=== PATIENT | female | born 1945 | race Two or more races ===

== ENCOUNTER 2016-03-13 17:15 | Emergency (ER) | payer MEDICARE, MEDICAID ==
[~2016-03-13] VITALS: Ht 175.3 cm; Wt 95.3 kg
[2016-03-13] MEDS ORDERED: HALOPERIDOL LACTATE INJ 5 MG/ML VIAL ONE (18:26)
[2016-03-13] MEDS ORDERED: HALOPERIDOL LACTATE INJ 5 MG/ML VIAL IV ONE (18:30)
[2016-03-13] MEDS ORDERED: LORAZEPAM INJ 2 MG/ML VIAL IM ONE (19:30)
[2016-03-13 20:03] VITALS: BP 130/70
== END 2016-03-13 20:04 ==
LOC: ER 17:22
DX: M79.89 Other specified soft tissue disorders (principal); R60.0 Localized edema; E11.9 Type 2 diabetes mellitus without complications; E78.00 Pure hypercholesterolemia, unspecified; I10 Essential (primary) hypertension; I48.91 Unspecified atrial fibrillation; J44.9 Chronic obstructive pulmonary disease, unspecified; R45.1 Restlessness and agitation; F17.210 Nicotine dependence, cigarettes, uncomplicated; I50.9 Heart failure, unspecified
CPT/HCPCS: A4606; J1630; Z7610

== ENCOUNTER 2017-02-26 11:31 | Inpatient (IN) | payer MEDICARE, MEDICAID ==
[~2017-02-26] VITALS: Ht 170.2 cm; Wt 93.9 kg
[2017-02-26] MEDS ORDERED: PIPERACILLIN /TAZOBACTAM 3.375 G in IV D5W 50 ML IV ONE (12:00)
[2017-02-26] MEDS ORDERED: VANCOMYCIN 1 GM in IV D5W 250 ML IV ONE (12:00)
[2017-02-26 12:26] LABS: BASOPHILS % (AUTO) 0.5 % (0.0-2.0); EOSINOPHILS # (AUTO) 0.1 /CMM (0.0-0.7); HEMATOCRIT 45 % (33-45); HEMOGLOBIN 15.4 g/dL (11.5-14.8); LYMPHOCYTES # (AUTO) 1.8 /CMM (0.8-4.8); LYMPHOCYTES % (AUTO) 20.3 % (20.0-44.0); MEAN CORPUSCULAR HEMOGLOBIN 32 PG (26.0-33.0); MEAN CORPUSCULAR HGB CONC 34 g/dl (31.0-36.0); MEAN CORPUSCULAR VOLUME 93 fL (82-100); MONOCYTES # (AUTO) 0.6 /CMM (0.1-1.30); MONOCYTES % (AUTO) 6.8 % (2.0-12.0); NEUTROPHILS # (AUTO) 6.5 /CMM (1.8-8.9); NEUTROPHILS % (AUTO) 71.4 % (43.0-81.0); PLATELET COUNT (AUTO) 200 /CMM (150-450); RDW COEFFICIENT OF VARIATION 13.1 (11.5-15.0); RED BLOOD CELL COUNT(AUTO) 4.86 MIL/uL (4.0-5.2); WHITE BLOOD COUNT (AUTO) 9.1 K/uL (4.3-11.0)
[2017-02-26 12:27] LABS: CALCIUM, SERUM 9.5 mg/dL (8.5-10.1); CARBON DIOXIDE 34 mmol/L (21-32); CHLORIDE 101 mmol/L (98-107); CREATININE 0.7 mg/dL (0.6-1.3); GLUCOSE 101 mg/dL (74-106); POTASSIUM 4.3 mmol/L (3.5-5.1); SODIUM SERUM 140 mmol/L (136-145); UREA NITROGEN, BLOOD 13 mg/dL (7-18)
[2017-02-26 12:33] LABS: ALANINE AMINOTRANSFERASE 43 U/L (12-78); ALBUMIN 3.8 g/dL (3.4-5.0); ALKALINE PHOSPHATASE 126 U/L (46-116); ASPARTATE AMINOTRANSFERASE 25 U/L (15-37); BILIRUBIN,DIRECT 0.2 mg/dL (0.0-0.2); BILIRUBIN,TOTAL 0.5 mg/dL (0.2-1.0); TOTAL PROTEIN, SERUM 8.1 g/dL (6.4-8.2)
[2017-02-26 12:34] LABS: TROPONIN I < 0.017 ng/mL (0.00-0.056)
[2017-02-26] MEDS ORDERED: FURO-145 PO (12:38)
[2017-02-26] MEDS ORDERED: ATOR10TA PO (12:38)
[2017-02-26] MEDS ORDERED: ALLA266C2 TP (12:38)
[2017-02-26] MEDS ORDERED: RIVA10TA PO (12:38)
[2017-02-26] MEDS ORDERED: MONT10TA22 PO (12:38)
[2017-02-26] MEDS ORDERED: FLUT1DIS5 IH (12:38)
[2017-02-26] MEDS ORDERED: RISP0.253 PO (12:38)
[2017-02-26] MEDS ORDERED: VARE1TAB PO (12:38)
[2017-02-26] MEDS ORDERED: CLON0.1T PO (12:38)
[2017-02-26] MEDS ORDERED: OXCA300T PO (12:38)
[2017-02-26] MEDS ORDERED: HYDR28.32 TP (12:38)
[2017-02-26] MEDS ORDERED: ALBU1.257 IH (12:38)
[2017-02-26 12:42] LABS: APPEARANCE,URINE Cloudy (CLEAR); BILIRUBIN,URINE SMALL (NEGATIVE); BLOOD, URINE Large Ery/uL (NEGATIVE); COLOR,URINE Yellow (YELLOW); KETONES,URINE Trace (NEGATIVE); LEUKOCYTE ESTERASE ,URINE Small (NEGATIVE); NITRITE, URINE Positive (NEGATIVE); PROTEIN,URINE >=300 mg/dl (NEGATIVE); UGLUCOSE Negative (NEGATIVE)
[2017-02-26 12:44] LABS: INR 1.03 (0.87-1.13); PROTHROMBIN TIME 10.7 SECS (9.5-12.7)
[2017-02-26 13:14] LABS: BACTERIA,URINE Many /HPF (None Seen); SQUAMOUS EPITHELIAL CELL,UR Few /HPF (None Seen); WBC,URINE 21-50 /HPF (0-3)
[2017-02-26 15:00] VITALS: BP 151/91
[2017-02-26] MEDS: CEFAZOLIN 1 GM in IV NS 0.9% 50 ML IV SCH (18:35)
[2017-02-26 20:00] VITALS: BP 141/113
[2017-02-26] MEDS ORDERED: CHANTIX XX SCH (20:30)
[2017-02-26] MEDS ORDERED: LIDOCAINE HCL/PF 1% 30 ML SDV IJ ONE (20:30)
[2017-02-26] MEDS ORDERED: CLONIDINE HCL 0.1 MG TABLET PO PRN (20:30)
[2017-02-26] MEDS ORDERED: ALBUTEROL HALF STRENGTH 1.25 MG/3 ML VIAL.NEB IH PRN (20:30)
[2017-02-26] MEDS ORDERED: risperiDONE 0.25 MG TABLET PO SCH (21:00)
[2017-02-26] MEDS ORDERED: risperiDONE 0.25 MG TABLET PO ONE (21:23)
[2017-02-26] MEDS: MONTELUKAST SODIUM (10MG) 10 MG TABLET PO SCH (21:29)
[2017-02-26] MEDS: ATORVASTATIN 10 MG TABLET PO SCH (21:29)
[2017-02-26] MEDS: RIVAROXABAN 10 MG TABLET PO SCH (21:35)
[2017-02-27] MEDS: CEFAZOLIN 1 GM in IV NS 0.9% 50 ML IV SCH ×3 (01:41→17:44)
[2017-02-27 08:00] VITALS: BP 139/90
[2017-02-27] MEDS: NYSTATIN TOP POWDER 15 GM BOTTLE TP SCH ×2 (09:00→16:48)
[2017-02-27] MEDS ORDERED: MONTELUKAST SODIUM (10MG) 10 MG TABLET PO SCH (09:00)
[2017-02-27] MEDS ORDERED: HYDROCORTISONE 1% CREAM 28.35 GM TUBE TP SCH (09:00)
[2017-02-27] MEDS: FUROSEMIDE 20 MG TABLET PO SCH (09:01)
[2017-02-27] MEDS: OXCARBAZEPINE 150 MG TABLET PO SCH ×2 (09:01→16:48)
[2017-02-27] MEDS: FLUTICASONE/VILANTEROL 1 EACH BLST.W.DEV IH SCH (09:10)
[2017-02-27] MEDS: HYDROCORTISONE 1% CREAM 28.35 GM TUBE TP SCH ×2 (09:10→16:49)
[2017-02-27] MEDS: Z GUARD REMEDY 2 OZ OINT TP SCH ×2 (09:10→16:49)
[2017-02-27 16:00] VITALS: BP 153/88
[2017-02-27] MEDS: RIVAROXABAN 10 MG TABLET PO SCH (16:48)
[2017-02-27 20:00] VITALS: BP 126/67
[2017-02-27] MEDS: MONTELUKAST SODIUM (10MG) 10 MG TABLET PO SCH (21:29)
[2017-02-27] MEDS: ATORVASTATIN 10 MG TABLET PO SCH (21:29)
[2017-02-27] MEDS: risperiDONE 1 MG TABLET PO SCH (21:30)
[2017-02-28] MEDS: CEFAZOLIN 1 GM in IV NS 0.9% 50 ML IV SCH ×3 (01:02→17:08)
[2017-02-28 08:00] VITALS: BP 128/77
[2017-02-28] MEDS: FUROSEMIDE 20 MG TABLET PO SCH (08:37)
[2017-02-28] MEDS: OXCARBAZEPINE 150 MG TABLET PO SCH ×2 (08:37→16:19)
[2017-02-28] MEDS: FLUTICASONE/VILANTEROL 1 EACH BLST.W.DEV IH SCH (08:37)
[2017-02-28] MEDS: Z GUARD REMEDY 2 OZ OINT TP SCH ×2 (08:38→16:20)
[2017-02-28] MEDS: risperiDONE 1 MG TABLET PO SCH ×2 (08:38→21:20)
[2017-02-28] MEDS: AMLODIPINE BESYLATE 5 MG TABLET PO SCH (08:38)
[2017-02-28] MEDS: HYDROCORTISONE 1% CREAM 28.35 GM TUBE TP SCH ×2 (08:39→16:20)
[2017-02-28] MEDS: NYSTATIN TOP POWDER 15 GM BOTTLE TP SCH ×2 (08:39→16:20)
[2017-02-28 16:00] VITALS: BP 100/71
[2017-02-28] MEDS: RIVAROXABAN 10 MG TABLET PO SCH (16:21)
[2017-02-28 20:00] VITALS: BP 108/74
[2017-02-28] MEDS: MONTELUKAST SODIUM (10MG) 10 MG TABLET PO SCH (21:20)
[2017-02-28] MEDS: ATORVASTATIN 10 MG TABLET PO SCH (21:20)
[2017-03-01] MEDS: CEFAZOLIN 1 GM in IV NS 0.9% 50 ML IV SCH ×3 (01:23→17:05)
[2017-03-01 08:37] VITALS: BP 126/80
[2017-03-01] MEDS: FUROSEMIDE 20 MG TABLET PO SCH (08:58)
[2017-03-01] MEDS: risperiDONE 1 MG TABLET PO SCH ×2 (08:58→21:32)
[2017-03-01] MEDS: FLUTICASONE/VILANTEROL 1 EACH BLST.W.DEV IH SCH (08:58)
[2017-03-01] MEDS: OXCARBAZEPINE 150 MG TABLET PO SCH ×2 (08:58→16:31)
[2017-03-01] MEDS: AMLODIPINE BESYLATE 5 MG TABLET PO SCH (08:58)
[2017-03-01] MEDS: Z GUARD REMEDY 2 OZ OINT TP SCH ×2 (08:59→16:32)
[2017-03-01] MEDS: NYSTATIN TOP POWDER 15 GM BOTTLE TP SCH ×2 (08:59→16:31)
[2017-03-01] MEDS: HYDROCORTISONE 1% CREAM 28.35 GM TUBE TP SCH ×2 (08:59→16:31)
[2017-03-01 16:00] VITALS: BP 123/81
[2017-03-01] MEDS: RIVAROXABAN 10 MG TABLET PO SCH (16:33)
[2017-03-01 20:38] VITALS: BP 113/67
[2017-03-01] MEDS: MONTELUKAST SODIUM (10MG) 10 MG TABLET PO SCH (21:32)
[2017-03-01] MEDS: ATORVASTATIN 10 MG TABLET PO SCH ×2 (22:00→23:38)
[2017-03-02] MEDS: CEFAZOLIN 1 GM in IV NS 0.9% 50 ML IV SCH ×2 (02:05→09:00)
[2017-03-02 08:00] VITALS: BP 113/81
[2017-03-02] MEDS: FLUTICASONE/VILANTEROL 1 EACH BLST.W.DEV IH SCH (08:52)
[2017-03-02] MEDS: OXCARBAZEPINE 150 MG TABLET PO SCH ×2 (08:53→16:51)
[2017-03-02] MEDS: FUROSEMIDE 20 MG TABLET PO SCH (08:53)
[2017-03-02] MEDS: risperiDONE 1 MG TABLET PO SCH (08:53)
[2017-03-02 08:54] VITALS: BP 118/71
[2017-03-02] MEDS: AMLODIPINE BESYLATE 5 MG TABLET PO SCH (08:54)
[2017-03-02] MEDS: HYDROCORTISONE 1% CREAM 28.35 GM TUBE TP SCH ×2 (08:57→16:53)
[2017-03-02] MEDS: NYSTATIN TOP POWDER 15 GM BOTTLE TP SCH ×2 (08:57→16:53)
[2017-03-02] MEDS: Z GUARD REMEDY 2 OZ OINT TP SCH ×2 (09:03→16:53)
[2017-03-02] MEDS: RIVAROXABAN 10 MG TABLET PO SCH (16:51)
== END 2017-03-02 17:30 | DRG 982 ==
LOC: ER 11:33 → MEDSG2 15:42
PROVIDERS: ADMIT Internal Medicine; ATTEND Internal Medicine
PROC: 05PY03Z Removal of Infusion Device from Upper Vein, Open Approach (ICD-10-PCS; principal; 2017-02-27)
DX: L03.314 Cellulitis of groin (principal); N39.0 Urinary tract infection, site not specified; I48.0 Paroxysmal atrial fibrillation; I11.0 Hypertensive heart disease with heart failure; I50.9 Heart failure, unspecified; E11.9 Type 2 diabetes mellitus without complications; E66.9 Obesity, unspecified; B96.20 Unspecified Escherichia coli [E. coli] as the cause of diseases classified elsewhere; J44.9 Chronic obstructive pulmonary disease, unspecified; F03.90 Unspecified dementia, unspecified severity, without behavioral disturbance, psychotic disturbance, mood disturbance, and anxiety; Z79.01 Long term (current) use of anticoagulants; Z85.41 Personal history of malignant neoplasm of cervix uteri; Z79.899 Other long term (current) drug therapy; Z90.710 Acquired absence of both cervix and uterus; Z68.32 Body mass index [BMI] 32.0-32.9, adult; I25.10 Atherosclerotic heart disease of native coronary artery without angina pectoris; F99 Mental disorder, not otherwise specified; Z98.890 Other specified postprocedural states; J42 Unspecified chronic bronchitis
CPT/HCPCS: 36415; 71045-TC; 80048-TC; 80076-TC; 81000-TC; 83605-TC; 84484-TC; 85025-TC; 85730-TC; 87040-TC; 87070-TC; 87081-TC; 87086-TC; 87186-TC; A4216; A4606; A6402; J0690; J2543; J3370; J3490; J7030; J7060; Z7610

== ENCOUNTER 2018-05-25 10:58 | Inpatient (IN) | payer MEDICARE, MEDICAID ==
[2018-05-24 15:40] VITALS: BP 137/83
[~2018-05-25] VITALS: Ht 170.2 cm; Wt 94.8 kg
[~2018-05-25 10:58] MED LIST: ALBU1.257 IH; ALLA266C2 TP; ATOR10TA PO; CLON0.1T PO; FLUT1DIS5 IH; FURO-145 PO; HYDR28.32 TP; MONT10TA22 PO; OXCA300T15 PO; RISP0.253 PO; RIVA10TA PO; VARE1TAB PO
--- NOTE | 2018-05-25 11:37 | NUR ---
patient presented to the ER c/o LLE edema, sent by Dr. Sadler for eval. On room air, breathing evenly and unlabored. Connected to the monitor and pulse ox. Kept comfortable, will continue to monitor accordingly.
[2018-05-25 11:44] LABS: BASOPHILS % (AUTO) 0.5 % (0.0-2.0); HEMATOCRIT 44 % (33-45); HEMOGLOBIN 14.8 g/dL (11.5-14.8); LYMPHOCYTES # (AUTO) 0.9 /CMM (0.8-4.8); LYMPHOCYTES % (AUTO) 9.8 % (20.0-44.0); MEAN CORPUSCULAR HGB CONC 34 g/dl (31.0-36.0); MEAN CORPUSCULAR VOLUME 95 fL (82-100); MONOCYTES # (AUTO) 0.8 /CMM (0.1-1.30); MONOCYTES % (AUTO) 8.9 % (2.0-12.0); NEUTROPHILS # (AUTO) 7.4 /CMM (1.8-8.9); NEUTROPHILS % (AUTO) 79.8 % (43.0-81.0); PLATELET COUNT (AUTO) 58 /CMM (150-450); RED BLOOD CELL COUNT(AUTO) 4.64 MIL/uL (4.0-5.2); WHITE BLOOD COUNT (AUTO) 9.3 K/uL (4.3-11.0)
[2018-05-25 11:50] LABS: CALCIUM, SERUM 8.8 mg/dL (8.5-10.1); CARBON DIOXIDE 33 mmol/L (21-32); CHLORIDE 101 mmol/L (98-107); CREATININE 0.7 mg/dL (0.6-1.3); GLUCOSE 123 mg/dL (74-106); POTASSIUM 3.8 mmol/L (3.5-5.1); SODIUM SERUM 138 mmol/L (136-145); UREA NITROGEN, BLOOD 15 mg/dL (7-18)
[2018-05-25] MEDS: RIVAROXABAN 15 MG TABLET PO SCH ×2 (12:16→17:47)
[2018-05-25 12:50] LABS: NEUTROPHILS % (MANUAL) 82 (42-76)
[2018-05-25 12:51] LABS: LYMPHOCYTES % (MANUAL) 8 % (16-48); MONOCYTES % (MANUAL) 10 % (0-11.0)
--- NOTE | 2018-05-25 13:00 | NUR ---
got bed 324-1
--- NOTE | 2018-05-25 14:00 | NUR ---
PATIENT ADMITTED TO TELE , CONTROLLED A-FIB HR 89 AT THIS TIME. PATIENT A/O X4, BREATHING UNLABORED AND EVEN ON 2L O2 VIA NC SATURATING 94%, BP 128/74 . PATIENT OBESE. SKIN DISCOLORATION AROUND GROIN ARIA,SACRAL REDNESS, LEFT LEG REDNESS AND SWELLING. PICTURES TAKEN AND PLACED IN PATIENT"S CHART. PAGED DR. MARKS TO INFORM. AWAITING FOR ADM. ORDERS.
--- NOTE | 2018-05-25 14:36 | NUR ---
wheeled patient via gurney accompanied by emt and RN in no apparent distress noted. Carli RN at bedside to assume care.
[2018-05-25 16:00] VITALS: BP 137/83
--- NOTE | 2018-05-25 16:00 | NUR ---
RECEIVED ORDERS FROM
[2018-05-25] MEDS ORDERED: CEFAZOLIN 1 GM in IV D5W 50 ML IV SCH (16:54)
[2018-05-25] MEDS ORDERED: ALBUTEROL HALF STRENGTH 1.25 MG/3 ML VIAL.NEB IH PRN (18:00)
--- NOTE | 2018-05-25 18:59 | NUR ---
PATIENT RESTING IN BED, BREATHING UNLABORED AND EVEN ON ROOM AIR AT THIS TIME TOLERATING WELL. NEEDS ATTENDED. IV LINE H/L TO R BINDU #22 Addendum: 05/25/18 at 1921 by JONY JANG RN SAFETY PRECAUTIONS IN PLACE.CALL LIGHT WITHIN REACH
--- NOTE | 2018-05-25 19:55 | NUR ---
PLASTICS PATTERNMAKER NOTES RECEIVED PATIENT ASLEEP, NO SIGNS OF DISTRESS, ALLL SAFETY MEASURES IN PLACE REPOSITIONED FOR COMFORT.
[2018-05-25 19:59] VITALS: BP 121/68
[2018-05-25] MEDS: Z GUARD REMEDY 2 OZ OINT TP SCH (21:56)
[2018-05-25] MEDS: CEFAZOLIN 1 GM in IV D5W 50 ML IV SCH (21:56)
[2018-05-25] MEDS: risperiDONE 1 MG TABLET PO SCH (21:59)
[2018-05-25] MEDS: ATORVASTATIN 10 MG TABLET PO SCH (22:02)
--- NOTE | 2018-05-25 23:00 | NUR ---
ACADEMY DIRECTOR NOTES TELE MONITOR READS A FIB READING HR 33s, CHARGE NURSE AWARE, SHOT PACKER AVERY MADE AWARE, JUST CONTINUE MONITORING PATIENT AT THIS TIME.
[2018-05-26] VITALS (7 sets, daily range): BP systolic 115–139; BP diastolic 58–93
[2018-05-26] MEDS: CEFAZOLIN 1 GM in IV D5W 50 ML IV SCH (05:59)
[2018-05-26 06:41] LABS: BASOPHILS % (AUTO) 0.4 % (0.0-2.0); EOSINOPHILS % (AUTO) 1.3 % (0.0-6.0); HEMATOCRIT 44 % (33-45); HEMOGLOBIN 14.6 g/dL (11.5-14.8); LYMPHOCYTES # (AUTO) 0.8 /CMM (0.8-4.8); LYMPHOCYTES % (AUTO) 9.2 % (20.0-44.0); MEAN CORPUSCULAR HGB CONC 33 g/dl (31.0-36.0); MEAN CORPUSCULAR VOLUME 95 fL (82-100); MONOCYTES # (AUTO) 0.8 /CMM (0.1-1.30); MONOCYTES % (AUTO) 9.3 % (2.0-12.0); NEUTROPHILS # (AUTO) 6.6 /CMM (1.8-8.9); NEUTROPHILS % (AUTO) 79.8 % (43.0-81.0); PLATELET COUNT (AUTO) 55 /CMM (150-450); RED BLOOD CELL COUNT(AUTO) 4.63 MIL/uL (4.0-5.2); WHITE BLOOD COUNT (AUTO) 8.2 K/uL (4.3-11.0)
[2018-05-26 07:00] LABS: CALCIUM, SERUM 8.5 mg/dL (8.5-10.1); CARBON DIOXIDE 32 mmol/L (21-32); CHLORIDE 102 mmol/L (98-107); CREATININE 0.5 mg/dL (0.6-1.3); GLUCOSE 109 mg/dL (74-106); POTASSIUM 4.1 mmol/L (3.5-5.1); SODIUM SERUM 140 mmol/L (136-145); UREA NITROGEN, BLOOD 16 mg/dL (7-18)
--- NOTE | 2018-05-26 07:53 | NUR ---
COOK SHORT ORDER NOTES ALL NEEDS ATTENDED AND MET, REPOSITIONED FOR COMFORT, PATIENT REMAINS A FIB 80s - 90s HR, NO SIGNS OF ACUTE DISTRESS, ABLE TO REST AND SLEEP AT INTERVALS, ENDORSED TO AM NURSE FOR CONTINUITY OF CARE.
--- NOTE | 2018-05-26 08:00 | NUR ---
rn open note patient seen in bed resting in no apparent distress. on 2lnc breathing regular non labored. reviewed poc. questions concerns addreseed bed down locked srx2 call ligth in reach .
[2018-05-26 08:50] LABS: EOSINOPHILS % (MANUAL) 1 % (0-4); LYMPHOCYTES % (MANUAL) 9 % (16-48); MONOCYTES % (MANUAL) 10 % (0-11.0); NEUTROPHILS % (MANUAL) 80 (42-76)
[2018-05-26] MEDS ORDERED: FUROSEMIDE 20 MG TABLET PO SCH (09:00)
[2018-05-26] MEDS: risperiDONE 1 MG TABLET PO SCH ×2 (09:52→21:11)
[2018-05-26] MEDS: FLUTICASONE/VILANTEROL 1 EACH BLST.W.DEV IH SCH (09:53)
[2018-05-26] MEDS: RIVAROXABAN 15 MG TABLET PO SCH ×2 (09:54→16:49)
[2018-05-26] MEDS: NICOTINE PATCH (21MG) 21 MG PATCH.TD24 TD SCH (09:55)
[2018-05-26] MEDS: MONTELUKAST SODIUM (10MG) 10 MG TABLET PO SCH (09:55)
--- NOTE | 2018-05-26 10:00 | NUR ---
Dr. Garcia in to see patient.
[2018-05-26] MEDS: Z GUARD REMEDY 2 OZ OINT TP SCH ×2 (12:56→16:51)
--- NOTE | 2018-05-26 19:25 | NUR ---
MS RN NOTES PATIENT IN BED RESTING NO SOB OR ACUTE DISTRESS NOTED. PATIENT ALERT, ORIENTED X3. ALL DUE MEDICATIONS ADMINISTERED. ALL NEEDS MET. ENDORSED CARE TO PM SHIFT.
--- NOTE | 2018-05-26 19:30 | NUR ---
RN Notes Received patient awake, alert and oriented x2-3, with periods of confusion. Denies any pain and discomfort at this time. IV access on right forearm patent and intact.Bilateral lower extremity elevated on a pillow. Kept pt on bedrest as ordered. Safety measures and fall precaution in place with call light within reach. Will continue to monitor pt.
[2018-05-26] MEDS: ATORVASTATIN 10 MG TABLET PO SCH (21:12)
[2018-05-27] VITALS: BP 145/92
[2018-05-27 04:00] VITALS: BP 158/98
--- NOTE | 2018-05-27 06:41 | NUR ---
RN Notes Patient slept well overnight, kept on bed rest and both lower leg on a pillow. Denies pain and any discomfort. On 2 lpm O2 and tolerated well. Kept clean and dry. All needs attended, fall precaution observed. Will endorse for continuity of care.
--- NOTE | 2018-05-27 07:10 | NUR ---
RN NOTES PATIENT A/OX2-3 WITH EPISODES OF CONFUSION, BREATHING EVEN AND UNLABORED, NO SOB NOTED, PATIENT IS NOTED TALKING TO HERSELF. INFORMED PATIENT TO STAY IN BED TODAY DUE TO THE DVT. PATIENT VERBALIZED UNDERSTANDING. KEPT COMFORTABLE, NEEDS ATTENDED, CALL LIGHT WITHIN REACH, WILL CONTINUE TO MONITOR.
[2018-05-27 08:00] VITALS: BP 133/88
[2018-05-27] MEDS: FLUTICASONE/VILANTEROL 1 EACH BLST.W.DEV IH SCH (08:27)
[2018-05-27] MEDS: MONTELUKAST SODIUM (10MG) 10 MG TABLET PO SCH (08:27)
[2018-05-27] MEDS: risperiDONE 1 MG TABLET PO SCH ×2 (08:27→21:16)
[2018-05-27] MEDS: RIVAROXABAN 15 MG TABLET PO SCH ×2 (08:28→17:22)
[2018-05-27] MEDS: DILTIAZEM HCL CD 240 MG PO SCH (08:28)
[2018-05-27] MEDS: NICOTINE PATCH (21MG) 21 MG PATCH.TD24 TD SCH (08:29)
[2018-05-27] MEDS: Z GUARD REMEDY 2 OZ OINT TP SCH ×2 (08:30→17:18)
[2018-05-27] MEDS ORDERED: IOHEXOL-300 100 ML VIAL IV ONE (12:12)
[2018-05-27] MEDS ORDERED: CT SWABBABLE VALVE TRANS SET 1 EA INFUS.SET MC ONE (12:13)
[2018-05-27] MEDS ORDERED: IV NS 0.9% 250 ML IV ONE (12:13)
[2018-05-27 13:23] LABS: ABG BASE EXCESS 7.1 mmol/L; ABG OXYGEN SATURATION 90.7 % (92.0-98.5); ABG PCO2 48.7 mmHg (35.0-45.0); ABG PH 7.443 (7.350-7.450); ABG PO2 56.6 mmHg (75.0-100.0); AaDO2 34.8 mmHg; MetHb 0.4 % (0.0-1.5); O2Hb 88.5 % (94.0-97.0); SITE, ABG Right Brachial; VENT MODE, BG Room Air
--- NOTE | 2018-05-27 14:00 | NUR ---
RN NOTES PATIENT NOTED LEFT HEEL SCAB AND RIGHT HEEL REDNESS, PHOTOS TAKEN.
[2018-05-27 16:00] VITALS: BP 124/77
--- NOTE | 2018-05-27 18:43 | NUR ---
RN NOTES PATIENT A/OX2-3, TALKING TO HERSELF MOST OF THE TIME, NO SI/HI NOTED. PATIENT NEEDS TO BE ENCOURAGED WITH SKIN CARE AND ADL CARE. SKIN CARE RENDERED, WOUND CARE TREATMENT, PATIENT ABLE TO TURN AND REPOSITION HERSELF, ENCOURAGED TO TURN EVERY 2 HOURS. NEEDS ATTENDED AND MET, CALL LIGHT WITHIN REACH, WILL CONTINUE TO MONITOR.
--- NOTE | 2018-05-27 19:00 | NUR ---
RN NOTES PATIENT FOUND PULLED OUT IV. REFUSING TO HAVE PIV LINE INSERTED, PATIENT IS SCREAMING. EXPLAINED RISKS AND BENEFITS STILL REFUSED. PATIENT IN STABLE CONDITION. NEEDS ATTENDED, CALL LIGHT WITHIN REAC H, WILL ENDORSE TO MULTI SITE LEASING CONSULTANT FOR JOSSIE.
--- NOTE | 2018-05-27 19:43 | NUR ---
RN MS OPENING NOTES RECEIVED PT IN BED, AWAKE ALERT ORIENTED X2-3, SPEAKS TO HER SELF WHEN ALONE, BREATHING EVEN AND UNLABORED ON 2L OF O2 VIA NC. IN NO APPARENT DISTRESS OR DISCOMFORT AT THIS TIME, NO IV ACCESS, PULLED OUT @1900, REFUSES REINSERTION, WILL TRY AGAIN IN A FEW HOURS. KEEP PT CLEAN AND COMFORTABLE WILL CONTINUE TO MONITOR FREQUENTLY.
[2018-05-27 20:08] VITALS: BP 132/86
[2018-05-27] MEDS: ATORVASTATIN 10 MG TABLET PO SCH (21:16)
--- NOTE | 2018-05-28 06:12 | NUR ---
RN MS CLOSING NOTES PT IN BED, AWAKE ALERT ORIENTED X2-3, BREATHING EVEN AND UNLABORED ON 2L OF O2 VIA NC. IN NO APPARENT DISTRESS OR DISCOMFORT AT THIS TIME, NO IV ACCESS, PULLED OUT @1900, REPEATED REFUSAL OF REINSERTION. KEPT PT CLEAN AND COMFORTABLE THROUGH SHIFT WILL ENDORSE TO DAY NURSE FOR JOSSIE
--- NOTE | 2018-05-28 07:30 | NUR ---
m/s supervisor type disk quality control: initial assessment received pt in bed awake, a/ox 2; pt at times get loud for no reason, at times unable to understand her wordings, but pt able to make needs known and follows direction. reality orientation provided prn. call light within reach. will continue to monitor.
[2018-05-28 08:00] VITALS: BP_SYST 127; BP_SYST 141; BP_DIAS 65; BP_DIAS 79
--- NOTE | 2018-05-28 08:40 | NUR ---
m/s senior packaging engineer: md visit seen and examined by dr. perez at this time. for d'c planning as stated. dr. perez called case management to make arrangement as stated. pt aware. will continue to monitor.
[2018-05-28] MEDS: MONTELUKAST SODIUM (10MG) 10 MG TABLET PO SCH (08:52)
[2018-05-28] MEDS: risperiDONE 1 MG TABLET PO SCH ×2 (08:52→20:23)
[2018-05-28] MEDS: DILTIAZEM HCL CD 240 MG PO SCH (08:53)
[2018-05-28] MEDS: ENOXAPARIN SODIUM 100 MG/ML DISP.SYRIN SQ SCH ×2 (08:54→20:24)
[2018-05-28] MEDS: NICOTINE PATCH (21MG) 21 MG PATCH.TD24 TD SCH (08:57)
[2018-05-28] MEDS: FLUTICASONE/VILANTEROL 1 EACH BLST.W.DEV IH SCH ×2 (08:57→09:00)
[2018-05-28] MEDS: Z GUARD REMEDY 2 OZ OINT TP SCH ×2 (09:04→17:44)
[2018-05-28 09:19] LABS: CANCER AG, 125 9.7 U/mL (0.0-38.1); CANCER AG, 15-3 28.7 U/mL (0.0-25.0)
--- NOTE | 2018-05-28 09:20 | NUR ---
WOUND CARE CONSULT: PT PRESENTS WITH DRY CALLUSED SKIN TO POSTERIOR HEELS AND REDNESS TO BILATERAL GROIN AREAS, PRESENT ON ADMISSION. PT IS INCONTINENT AND SOMETIMES UNCOOPERATIVE. PT REPEATS HERSELF ALMOST CONSTANTLY. RECOMMENDATIONS MADE FOR SKIN PROTECTION. DISCUSSED WITH NURSING STAFF. WILL SEE PRN. CURRENT ANTONIO SCORE IS 17. MD IN AGREEMENT WITH PLAN OF CARE. Addendum: 05/28/18 at 0922 by ARUNA ROTHMAN WNDNU Amended: Links added.
--- NOTE | 2018-05-28 11:50 | NUR ---
m/s storm chaser: notes lunch served with hob elevated. instructed to call for assistance. will continue to monitor.
[2018-05-28 13:08] LABS: CA 27.29 41.5 U/mL (0.0-38.6)
--- NOTE | 2018-05-28 14:00 | NUR ---
m/s grinder hardboard: notes pt in bed awake, resting quietly at this time. no distress noted. will continue to monitor.
[2018-05-28 16:00] VITALS: BP 145/91
--- NOTE | 2018-05-28 17:23 | NUR ---
m/s robotics specialist: notes f/u made to dr. perez re: coumadin dosing and md informed me that i need to call dr. buck (onco/susan) for that order. left message to dr. buck re: coumadin dosing. will continue to monitor.
--- NOTE | 2018-05-28 18:24 | NUR ---
m/s recycle worker: notes dr. buck called back with order to start on coumadin 5mg po daily. order read back and carried out and acknowledged.
[2018-05-28] MEDS: WARFARIN SODIUM 5 MG TABLET PO SCH (18:31)
--- NOTE | 2018-05-28 19:34 | NUR ---
MS PLUNKETT OPENING NOTES: RECEIVED PT ON ROOM AIR AND IS TOLERATING WELL. PT IS A/XO2. PT HAS NO IV AT THIS TIME. NO SOB NOTED. NO S/S OF DISTRESS. BED ALARM ACTIVATED. BED KEPT IN LOW, LOCKED POSITION, AND SIDE RAILS X 2UP. WILL CONTINUE TO MONITOR PT. Addendum: 05/29/18 at 0154 by FELIPE FAIRCHILD RN OFFERED TO START IV ON PT. PT REFUSING TO HAVE IV STARTED AT THIS TIME. WILL ATTEMPT TO TRY AGAIN AT ANOTHER TIME. Addendum: 05/29/18 at 0513 by FELIPE FAIRCHILD RN NICODERM PATCH NOTED ON L UPPER ARM.
[2018-05-28 20:00] VITALS: BP 101/59
[2018-05-28] MEDS: ATORVASTATIN 10 MG TABLET PO SCH (21:00)
[2018-05-28 23:00] LABS: BASOPHILS # (AUTO) 0.1 /CMM (0.0-0.2); BASOPHILS % (AUTO) 0.7 % (0.0-2.0); EOSINOPHILS % (AUTO) 0.2 % (0.0-6.0); HEMATOCRIT 44 % (33-45); HEMOGLOBIN 14.8 g/dL (11.5-14.8); LYMPHOCYTES # (AUTO) 0.9 /CMM (0.8-4.8); LYMPHOCYTES % (AUTO) 7.7 % (20.0-44.0); MEAN CORPUSCULAR HGB CONC 34 g/dl (31.0-36.0); MEAN CORPUSCULAR VOLUME 94 fL (82-100); MONOCYTES # (AUTO) 1.4 /CMM (0.1-1.30); MONOCYTES % (AUTO) 11.5 % (2.0-12.0); NEUTROPHILS # (AUTO) 9.4 /CMM (1.8-8.9); NEUTROPHILS % (AUTO) 79.9 % (43.0-81.0); PLATELET COUNT (AUTO) 105 /CMM (150-450); RED BLOOD CELL COUNT(AUTO) 4.61 MIL/uL (4.0-5.2); WHITE BLOOD COUNT (AUTO) 11.8 K/uL (4.3-11.0)
[2018-05-29] VITALS: BP 157/81
[2018-05-29 01:11] LABS: LYMPHOCYTES % (MANUAL) 7 % (16-48); MONOCYTES % (MANUAL) 6 % (0-11.0); NEUTROPHILS % (MANUAL) 87 (42-76)
--- NOTE | 2018-05-29 05:10 | NUR ---
MS RN NOTES: AFTER BED BATH, OFFERED TO INSERT IV ON PT. EXPLAINED TO PT IMPORTANCE OF HAVING AN IV. PT REFUSING TO HAVE IV INSERTED. "I AM SUPPOSED TO GO HOME. SAID SO. ALL I NEED ARE THE SHOTS."
--- NOTE | 2018-05-29 06:32 | NUR ---
MS RN CLOSING NOTES: ALL NEEDS WERE ATTENDED AND ANTICIPATED FOR. PT KEPT CLEAN, DRY, AND COMFORTABLE. PT ON ROOM AIR AND TOLERATING WELL. NO SOB NOTED. NO S/S OF DISTRESS. NO IV NOTED PT IS REFUSING TO HAVE IV INSERTED. L LOWER EXTREMITY ELEVATED WITH PILLOW. NICODERM PATCH NOTED ON L ARM. BED KEPT IN LOW, LOCKED POSITION, AND SIDE RAILS X 2UP. BED ALARM ACTIVATED. WILL ENDORSE TO AM NURSE FOR JOSSIE.
[2018-05-29 07:15] LABS: BASOPHILS % (AUTO) 0.4 % (0.0-2.0); EOSINOPHILS % (AUTO) 0.9 % (0.0-6.0); HEMATOCRIT 44 % (33-45); LYMPHOCYTES # (AUTO) 0.8 /CMM (0.8-4.8); LYMPHOCYTES % (AUTO) 10.6 % (20.0-44.0); MEAN CORPUSCULAR HGB CONC 34 g/dl (31.0-36.0); MEAN CORPUSCULAR VOLUME 94 fL (82-100); MONOCYTES # (AUTO) 0.8 /CMM (0.1-1.30); MONOCYTES % (AUTO) 9.5 % (2.0-12.0); NEUTROPHILS # (AUTO) 6.3 /CMM (1.8-8.9); NEUTROPHILS % (AUTO) 78.6 % (43.0-81.0); PLATELET COUNT (AUTO) 112 /CMM (150-450); RED BLOOD CELL COUNT(AUTO) 4.68 MIL/uL (4.0-5.2)
[2018-05-29 08:00] VITALS: BP 121/74
[2018-05-29] MEDS: Z GUARD REMEDY 2 OZ OINT TP SCH ×2 (09:00→17:41)
--- NOTE | 2018-05-29 09:00 | NUR ---
called [facility] out in [facility] and pharm said to get an order for pt/ inr.
[2018-05-29] MEDS: risperiDONE 1 MG TABLET PO SCH (09:31)
[2018-05-29] MEDS: DILTIAZEM HCL CD 240 MG PO SCH (09:32)
[2018-05-29] MEDS: MONTELUKAST SODIUM (10MG) 10 MG TABLET PO SCH (09:32)
[2018-05-29] MEDS: NICOTINE PATCH (21MG) 21 MG PATCH.TD24 TD SCH (09:33)
[2018-05-29] MEDS: FLUTICASONE/VILANTEROL 1 EACH BLST.W.DEV IH SCH (10:17)
--- NOTE | 2018-05-29 12:00 | NUR ---
patient still refusing to have iv reinserted. repositioned 2 hourly and kept comfortable in bed.
[2018-05-29] MEDS: ENOXAPARIN SODIUM 100 MG/ML DISP.SYRIN SQ SCH (14:29)
[2018-05-29 15:59] VITALS: BP 108/59
[2018-05-29] MEDS: WARFARIN SODIUM 5 MG TABLET PO SCH (17:36)
--- NOTE | 2018-05-29 18:27 | NUR ---
REPORT GIVEN TO THE [place] NURSE. PATIENT DENIES PAINAND NO REDNESS ON THE SACRAL/ COCCYX AREA. PICTURES TAKEN. PATIENT REFUSEDTO BE BATHERED WITH HER LEGS AND FEET. NO PICTURES TAKEN. SCABBED FEET. NOT OPEN WOUND.
--- NOTE | 2018-05-29 19:17 | NUR ---
REPORT GIVEN TO [facility]. PATIENT LEFT IN STABLE CONDITION AND REPORT GIVEN TO REINALDO.
[2018-06-15] MEDS ORDERED: RIVAROXABAN 10 MG TABLET PO SCH (09:00)
== END 2018-05-29 19:30 | DRG 300 ==
LOC: ER 11:00 → TELE 13:30 → MED 05-27 09:44
PROVIDERS: ADMIT Internal Medicine; ATTEND Internal Medicine
DX: I82.402 Acute embolism and thrombosis of unspecified deep veins of left lower extremity (principal); E66.2 Morbid (severe) obesity with alveolar hypoventilation; E11.9 Type 2 diabetes mellitus without complications; I10 Essential (primary) hypertension; I48.91 Unspecified atrial fibrillation; Z79.899 Other long term (current) drug therapy; Z85.41 Personal history of malignant neoplasm of cervix uteri; Z79.51 Long term (current) use of inhaled steroids; Z79.01 Long term (current) use of anticoagulants; D69.6 Thrombocytopenia, unspecified; F17.200 Nicotine dependence, unspecified, uncomplicated; J44.9 Chronic obstructive pulmonary disease, unspecified; Z86.59 Personal history of other mental and behavioral disorders; Z68.32 Body mass index [BMI] 32.0-32.9, adult
CPT/HCPCS: 36415; 36600; 71045-TC; 71270-TC; 74178; 80048-TC; 82378; 84484-TC; 85025-TC; 85378-TC; 85610-TC; 85730-TC; 86300; 86301; 86304; 87081-TC; 93307-TC; 93971-TC; G0378; J0690; J1650; J7050; J7060; Q9967